=== PATIENT | female | born 1930 | race Caucasian/White ===

== ENCOUNTER 2018-04-20 16:22 | Emergency (ER) | payer MEDICARE, MEDICAID ==
[2018-04-20 16:22] VITALS: BMI 23.0
[2018-04-20 16:24] VITALS: RESP 18
[2018-04-20 17:56] LABS: BASO # 0.1 K/uL (0.0-0.2); BASO % 1.5 % (0.0-2.0); EOS # 0.3 K/uL (0.0-0.7); EOS % 4.2 % (0.0-4.0); HEMOGLOBIN 10.1 g/dL (12.0-16.0); LYMPH # 1.7 K/uL (1.0-4.3); LYMPH % 28.7 % (20.0-40.0); MEAN CELL VOLUME 78.3 fl (81.0-99.0); MEAN CORPUSCULAR HEMOGLOBIN 25.5 pg (27.0-31.0); MEAN CORPUSCULAR HGB CONC 32.6 g/dL (33.0-37.0); MEAN PLATELET VOLUME 9.6 fl (7.2-11.7); MONO # 1.1 K/uL (0.0-0.8); MONO % 18.2 % (0.0-10.0); NEUT # 2.8 K/uL (1.8-7.0); NEUT % 47.4 % (50.0-75.0); NRBC % 0.2 % (0.0-0.0); RBC 3.97 Mil/uL (3.80-5.20); RED CELL DISTRIBUTION WIDTH 16.5 % (11.5-14.5)
[2018-04-20 18:01] LABS: PROTHROMBIN TIME 11.2 Seconds (9.8-13.1)
--- NOTE | 2018-04-20 18:01 | ED PDOC ---
Lower Extremity Pain/Injury Time Seen by Provider: 04/20/18 16:50 Chief Complaint (Nursing): Lower Extremity Problem/Injury Chief Complaint (Provider): Lower Extremity Problem/Injury History Per: Patient History/Exam Limitations: no limitations (possible inconsistency due to poor memory) Onset/Duration Of Symptoms: Unknown Current Symptoms Are (Timing): Still Present Additional Complaint(s): Patient is an 87 y/o female with a PMHx of HTN who presents to the ED for evaluation of progressive leg swelling for an unknown amount of time. Patient reports to have fallen onto her knees two days ago. Patient states she has difficulty walking due to pain in her legs that is worse on the right. Patient denies CP and SOB. Patient has not seen her PMD in a very long time. Patient claims to forget why she came to the ED. Of note, patient history may be unreliable due to the patient's poor memory. PCP: Dr. Yonathan Vazquez Past Medical History Reviewed: Historical Data, Nursing Documentation, Vital Signs Vital Signs: Last Vital Signs Temp 98.4 F 04/20/18 16:24 Pulse 59 L 04/20/18 16:24 Resp 18 04/20/18 16:24 BP 123/67 04/20/18 16:24 Pulse Ox 98 04/20/18 16:24 - Medical History PMH: HTN Denies: Anxiety, Arthritis, CHF, COPD, Depression, HIV, Hypercholesterolemia, Hypothyroidism, Chronic Kidney Disease, Rheumatoid Arthritis, Seizures, TIA - Surgical History Surgical History: No Surg Hx - Family History Family History: States: No Known Family Hx - Home Medications Home Medications: Ambulatory Orders Medication Instructions Recorded Lidocaine 5% [Lidoderm] 1 ea TD DAILY PRN #30 patch 04/20/18 RX: Naproxen [Naprosyn] 1 tab PO BID PRN #30 tab 04/20/18 - Allergies Allergies/Adverse Reactions: Allergies Allergy/AdvReac Type Severity Reaction Status Date / Time EGG Allergy NAUSEA Verified 04/20/18 16:27 Review of Systems ROS Statement: Except As Marked, All Systems Reviewed And Found Negative (as per HPI) Cardiovascular: Negative for: Chest Pain Respiratory: Negative for: Shortness of Breath Musculoskeletal: Positive for: Leg Pain (and swelling) Neurological: Positive for: Confusion Physical Exam - Reviewed Nursing Documentation Reviewed: Yes Vital Signs Reviewed: Yes - Physical Exam Appears: Positive for: No Acute Distress Head Exam: Positive for: ATRAUMATIC, NORMOCEPHALIC Skin: Positive for: Pallor Eye Exam: Positive for: EOMI, PERRL ENT: Negative for: Pharyngeal Erythema, Tonsillar Exudate Neck: Positive for: Painless ROM, Supple Cardiovascular/Chest: Positive for: Regular Rate, Rhythm. Negative for: Murmur Respiratory: Positive for: Normal Breath Sounds. Negative for: Respiratory Distress Gastrointestinal/Abdominal: Positive for: Soft. Negative for: Tenderness Extremity: Positive for: Normal ROM (right knee), Tenderness (to palpation on rigtht knee), Pedal Edema (2+; bilateral lower legs - worse on right) Lymphatic: Negative for: Adenopathy Neurologic/Psych: Positive for: Alert, Oriented (x2). Negative for: Motor/Sensory Deficits - Laboratory Results Result Diagrams: 04/20/18 17:18 04/20/18 17:18 - ECG O2 Sat by Pulse Oximetry: 98 (RA) Pulse Ox Interpretation: Normal Medical Decision Making Medical Decision Making: Time: 1658 Impression: Leg edema and knee pain. DDx includes but not limited to CHF, renal failure, fluid overload, DVT, and knee fracture/sprain. Plan: Type and Screen EKG [employer]ILD[employer]PER[employer]OR CMP Magnesium Phosphorus Troponin I CBC PTT Prothrombin Time Chest One View [Rad] Knee 3 Views RT [Rad] IV Insertion (Saline Lock) Duplex Lower Extrem Vein Bilat [US] Labs demonstrate elevated BUN but normal GFR and Creatinine. Normal probnp as well. CXR unremarkable. EXAM: US for Deep Venous Thrombosis, bilateral Lower Extremity. CLINICAL HISTORY: Bilat pain and swelling TECHNIQUE: Real-time ultrasound scan of the veins of the bilateral lower extremity with color Doppler flow, spectral waveform analysis and compression. COMPARISON: None provided. FINDINGS: DEEP VEINS: The common femoral, superficial femoral, and popliteal veins are echolucent and compressible. There is normal color Doppler flow throughout. The visualized calf veins appear patent. SUPERFICIAL VEINS: The visualized greater saphenous vein is patent. SOFT TISSUES: No popliteal fossa cyst or other abnormalities. IMPRESSION: No deep venous thrombosis evident on bilateral lower extremity examination. Electronically signed on Apr 20, 2018 8:47:50 PM EST by: Guy Morlaes M.D., SHILOH Certified By [facility] [employer] [facility] Fellowship Trained MRI and CT Specialist On reeval pt ambulating with walker slowly and she is eager to be discharged. Scribe Attestation: Documented by Michael Donald, acting as a scribe for provider Casandra Redmond MD. All medical record entries made by the Scribe were at my direction and personally dictated by me. I have reviewed the chart and agree that the record accurately reflects my personal performance of the history, physical exam, medical decision making, and the department course for this patient. I have also personally directed, reviewed, and agree with the discharge instructions and disposition. Disposition - Clinical Impression Clinical Impression: Arthritis of knee Counseled Patient/Family Regarding: Studies Performed, Diagnosis, Need For Followup, Rx Given - Disposition Referrals: Yonathan Vazquez [Family Provider] - ([facility] DOCTOR POR [facility]NANA POR MAS EVALUACIONES Y TRATIMIENTE) Disposition: Routine/Home Disposition Time: 21:47 Condition: STABLE Prescriptions: Lidocaine 5% [Lidoderm] 1 ea TD DAILY PRN #30 patch PRN Reason: PAIN RX: Naproxen [Naprosyn] 1 tab PO BID PRN #30 tab PRN Reason: Pain Instructions: Osteoarthritis (DC), Dependent Edema (DC), Knee Pain (DC) Print Language: TAJIK
[2018-04-20 18:03] LABS: PARTIAL THROMBOPLASTIN TIME 28.3 Seconds (25.6-37.1)
[2018-04-20 18:04] LABS: ALB/GLOB RATIO 1.1 (1.0-2.1); ALBUMIN 4.1 g/dL (3.5-5.0); ALT/SGPT 20 U/L (9-52); AST/SGOT 29 U/L (14-36); BLOOD UREA NITROGEN 35 mg/dl (7-17); CALCIUM 9.2 mg/dL (8.4-10.2); GFR NON-AFRICAN AMERICAN > 60
[2018-04-20 19:00] LABS: B-TYPE NATRIURETIC PEPTIDE 215 pg/ml (0-900)
[2018-04-20 19:23] LABS: URINE BACTERIA RARE (<OCC); URINE BILIRUBIN NEGATIVE (NEGATIVE); URINE BLOOD NEGATIVE (NEGATIVE); URINE CLARITY CLEAR (Clear); URINE COLOR YELLOW (YELLOW); URINE GLUCOSE (UA) NEG (NEGATIVE); URINE LEUKOCYTE ESTERASE SMALL Leu/uL (Negative); URINE PROTEIN NEGATIVE (NEGATIVE); URINE UROBILINOGEN 0.2-1.0 mg/dL (0.2-1.0)
[2018-04-21 05:54] VITALS: BP 136/77; PULSE 62; TEMP 98.7
--- NOTE | 2018-04-21 09:23 | RAD ---
Date of service: 04/20/2018 PROCEDURE: Right Knee Radiographs. HISTORY: RIGHT knee pain COMPARISON: None. FINDINGS: BONES: No fracture appreciated. JOINTS: Advanced arthrosis medial femoral tibial compartment most notably affected. JOINT EFFUSION: Small suprapatellar joint effusion suggested OTHER FINDINGS: Subcutaneous reticulated edema-probable lymphedema. IMPRESSION: No fracture or lytic lesion. Advanced osteoarthrosis-medial femoral tibial compartment most notably affected. Joint effusion present
--- NOTE | 2018-04-21 09:25 | RAD ---
Date of service: 04/20/2018 PROCEDURE: CHEST RADIOGRAPH, 1 VIEW HISTORY: edema COMPARISON: 08/22/2015 FINDINGS: LUNGS: No consolidation. PLEURA: No pneumothorax or pleural fluid seen. CARDIOVASCULAR: There is presence of aortic atherosclerotic calcification on x-ray. Unfolded prominent thoracic aorta similar in appearance cardiomegaly-similar. Pulmonary venous congestion suspect appear slightly increased since prior exam current study with less lung insufflation. OSSEOUS STRUCTURES: Diffuse thoracic spondylosis. VISUALIZED UPPER ABDOMEN: Normal. OTHER FINDINGS: None. IMPRESSION: Cardiomegaly-similar. Mild pulmonary venous congestion-suspect probably an interval change. No nicole effusion seen
--- NOTE | 2018-04-21 10:25 | CARD ---
APPROVED REPORT Date of service: 04/20/2018 EKG Measurement Heart [id number] <Conclusion> Sinus rhythm with 1st degree AV block Right bundle branch block Left anterior fascicular block Bifascicular block Moderate voltage criteria for LVH, may be normal variant Abnormal ECG
--- NOTE | 2018-04-21 10:50 | US ---
Date of service: 04/20/2018 PROCEDURE: Bilateral lower extremity venous duplex Doppler. HISTORY: bilateral leg edema R>L COMPARISON: None available. TECHNIQUE: Bilateral common femoral, superficial femoral, popliteal and posterior tibial veins were evaluated. Flow was assessed with color Doppler, compressibility, assessment of phasic flow and augmentation response. FINDINGS: COMMON FEMORAL VEIN: Right CFV: Unremarkable. Left CFV: Unremarkable. SUPERFICIAL FEMORAL VEIN: Right SFV: Unremarkable. Left SFV: Unremarkable. POPLITEAL VEIN: Right Popliteal: Unremarkable. Left Popliteal: Unremarkable. POSTERIOR TIBIAL VEIN: Right PTV: Unremarkable. Left PTV: Unremarkable. OTHER FINDINGS: None. IMPRESSION: No evidence of deep venous thrombosis. Concordant findings (preliminary report) provided by [facility].
[2018-04-22 19:39] VITALS: O2SAT 98
== END 2018-04-20 23:22 | disposition home or self-care (01) ==
LOC: H.ER 16:22
DX: M17.9 Osteoarthritis of knee, unspecified (principal); I10 Essential (primary) hypertension; I44.0 Atrioventricular block, first degree; I45.10 Unspecified right bundle-branch block

== ENCOUNTER 2018-06-16 04:26 | Emergency (ER) | payer MEDICARE, MEDICAID ==
[2018-06-16 04:26] VITALS: BMI 23.0
--- NOTE | 2018-06-16 05:07 | ED PDOC ---
HPI: Trauma/Fall - HPI Time Seen by Provider: 06/16/18 04:44 Chief Complaint (Nursing): Trauma Chief Complaint (Provider): right knee pain History Per: Patient, Family (sister) History/Exam Limitations: other (dementia) Onset/Duration Of Symptoms: Hrs (1) Injury Occurred (Timing): Hours Ago: (1) Severity: Mild Additional History Per: Family (sister) Additional Complaint(s): PAtient is am 87 julius old female s/p fall. Sister reports patient got up from bed and attempted to ambulate unassisted by walker. She fell in front of fromt door in hallway of apartment building. No associated head injury or loss of consciousness. - Fall Fall:Prior To Injury: Lost Balance Past Medical History Reviewed: Historical Data, Nursing Documentation, Vital Signs Vital Signs: Last Vital Signs Temp 98.1 F 06/16/18 04:29 Pulse 76 06/16/18 04:29 Resp 16 06/16/18 04:29 BP 124/50 L 06/16/18 04:29 Pulse Ox 98 06/16/18 04:29 - Medical History PMH: HTN Denies: Anxiety, Arthritis, CHF, COPD, Depression, HIV, Hypercholesterolemia, Hypothyroidism, Chronic Kidney Disease, Rheumatoid Arthritis, Seizures, TIA - Family History Family History: States: Unknown Family Hx - Living Arrangements Living Arrangements: With Family - Social History Current smoker - smoking cessation education provided: No Ex-Smoker (has not smoked in the last 12 months): No Alcohol: None Drugs: Denies - Home Medications Home Medications: Ambulatory Orders Medication Instructions Recorded Lidocaine 5% [Lidoderm] 1 ea TD DAILY PRN #30 patch 04/20/18 Naproxen [Naprosyn] 1 tab PO BID PRN #30 tab 04/20/18 - Allergies Allergies/Adverse Reactions: Allergies Allergy/AdvReac Type Severity Reaction Status Date / Time EGG Allergy NAUSEA Verified 04/20/18 16:27 Review of Systems ROS Statement: Except As Marked, All Systems Reviewed And Found Negative Musculoskeletal: Positive for: Leg Pain Physical Exam - Reviewed Nursing Documentation Reviewed: Yes - Physical Exam Appears: Positive for: Well Head Exam: Positive for: ATRAUMATIC, NORMOCEPHALIC Skin: Positive for: Normal Color, Warm, Dry Eye Exam: Positive for: Normal appearance, EOMI, PERRL ENT: Positive for: Normal ENT Inspection Neck: Positive for: Normal Cardiovascular/Chest: Positive for: Regular Rate, Rhythm Respiratory: Positive for: Normal Breath Sounds. Negative for: Rales, Wheezing Gastrointestinal/Abdominal: Positive for: Normal Exam, Bowel Sounds, Soft. Negative for: Tenderness Back: Positive for: Normal Inspection Extremity: Positive for: Normal ROM, Pedal Edema, Swelling (1+ (chronic per sister)), Other (mild edema to klnee noted; no focal tenderness). Negative for: Tenderness Neurological/Psych: Positive for: Awake, Alert. Negative for: Facial Droop - ECG O2 Sat by Pulse Oximetry: 98 Medical Decision Making Medical Decision Makin yo female with knee pain s/p mechanical fall Patient declines pain medication Xray right knee Right Knee Xray no fracture/dislocation Dx Right Knee Contusion Stable Disposition - Clinical Impression Clinical Impression: Knee contusion - Disposition Disposition: Routine/Home Disposition Time: 06:30 Condition: STABLE Instructions: Contusion (DC) Forms: [facility] ([employer]) Print Language: LAO
[2018-06-16 06:06] VITALS: TEMP 98
--- NOTE | 2018-06-16 08:04 | RAD ---
Date of service: 06/16/2018 PROCEDURE: Right Knee Radiographs. HISTORY: pain COMPARISON: 04/20/2018 FINDINGS: BONES: No fracture visualized. At this setting no sunrise view available per technologist's could not position for this. Tricompartmental osteoarthrosis with osteophytosis and subchondral sclerosis present. Again the medial femoral tibial compartment is most notably affected. JOINTS: Arthrosis JOINT EFFUSION: Small probable-similar OTHER FINDINGS: Subcutaneous reticulated edema-probably increased since prior exam. Lymphedema and/or cellulitis compatible with this. No gas-forming cellulitis noted. IMPRESSION: Advanced osteoarthrosis-medial femoral tibial compartment most compromised. No change. No fracture or lytic lesion seen. Probable small suprapatellar joint effusion-similar Subcutaneous reticulated edema-probably increased since prior exam. Lymphedema and/or cellulitis compatible with this. No gas-forming cellulitis noted.
[2018-06-16 12:20] VITALS: BP 130/70; PULSE 78; RESP 18
[2018-06-20 04:57] VITALS: O2SAT 98
== END 2018-06-16 11:30 | disposition home or self-care (01) ==
LOC: H.ER 04:26
DX: S80.01XA Contusion of right knee, initial encounter (principal); W01.0XXA Fall on same level from slipping, tripping and stumbling without subsequent striking against object, initial encounter